=== PATIENT | female | born 1975 | race Caucasian/White ===

== ENCOUNTER 2024-02-24 11:36 | Emergency (ER) | payer OTHER ==
[2024-02-24 11:54] VITALS: BP 116/78; PULSE 92; RESP 18; TEMP 97.3; BMI 20.3
[2024-02-24] MEDS ORDERED: KETOROLAC TROMETHAMINE 15 MG/ML VIAL ONE (14:08)
[2024-02-24] MEDS: KETOROLAC TROMETHAMINE 15 MG/ML VIAL IM ONE (14:16)
== END 2024-02-24 14:50 | disposition left against medical advice (07) ==
LOC: JER 11:36
PROC: 3E0133Z Introduction of Anti-inflammatory into Subcutaneous Tissue, Percutaneous Approach (ICD-10-PCS; principal; 2024-02-24)
DX: M54.2 Cervicalgia (principal); R51.9 Headache, unspecified; V43.52XA Car driver injured in collision with other type car in traffic accident, initial encounter; Y92.481 Parking lot as the place of occurrence of the external cause
CPT/HCPCS: 99284-25